=== PATIENT | female | born 1995 | race Caucasian/White ===

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

== ENCOUNTER → 2018-05-13 | Outpatient (CLI) | payer BC ==
[~2018-05-13] MED LIST changes: +MISC-1040; +MTR600X PO; +PRENTAB26 PO; -PRVHFAIN INH; +SERT25TA PO
== END ==
LOC: C.OPB 10:43
PROVIDERS: ATTEND Obstetrics & Gynecology